=== PATIENT | female | born 1950 | race Caucasian/White ===

== ENCOUNTER → 2023-04-25 12:15 | Outpatient (REF) | payer MEDICARE, OTHER, SELFPAY | LOC: HWRAD 12:15 | PROVIDERS: ATTENDING PHYSICIAN Internal Medicine | DX: R07.89 Other chest pain (principal) | CPT/HCPCS: 71046 ==

== ENCOUNTER → 2023-05-14 09:32 | Outpatient (REF) | payer MEDICARE, OTHER, SELFPAY | LOC: HWRAD 09:32 | PROVIDERS: ATTENDING PHYSICIAN Internal Medicine | DX: R10.9 Unspecified abdominal pain (principal); R10.84 Generalized abdominal pain; M54.6 Pain in thoracic spine; R07.81 Pleurodynia | CPT/HCPCS: 71100; 72072 ==

== ENCOUNTER → 2023-05-24 09:35 | Outpatient (REF) | payer MEDICARE, OTHER, SELFPAY | LOC: RAD 09:35 | PROVIDERS: ATTENDING PHYSICIAN Internal Medicine | DX: R10.9 Unspecified abdominal pain (principal); N20.0 Calculus of kidney | CPT/HCPCS: 74176 ==

== ENCOUNTER → 2023-12-04 15:04 | Outpatient (REF) | payer MEDICARE, OTHER, SELFPAY | LOC: RCS 15:04 | PROVIDERS: ATTENDING PHYSICIAN Internal Medicine | DX: I10 Essential (primary) hypertension (principal); E78.5 Hyperlipidemia, unspecified; E07.89 Other specified disorders of thyroid; R07.89 Other chest pain | CPT/HCPCS: 93017 ==

== ENCOUNTER → 2024-03-13 11:26 | Outpatient (REF) | payer MEDICARE, OTHER, SELFPAY | LOC: WDC 11:26 | PROVIDERS: ATTENDING PHYSICIAN Internal Medicine | DX: Z12.31 Encounter for screening mammogram for malignant neoplasm of breast (principal) | CPT/HCPCS: 77063; 77067 ==

== ENCOUNTER → 2024-06-13 09:18 | Outpatient (REF) | payer MEDICARE, OTHER, SELFPAY | LOC: RAD 09:18 | PROVIDERS: ATTENDING PHYSICIAN Internal Medicine Rheumatology; FAMILY PHYSICIAN Internal Medicine | DX: M81.0 Age-related osteoporosis without current pathological fracture (principal) | CPT/HCPCS: 77080; 77081 ==

== ENCOUNTER 2025-02-18 06:29 | Day surgery (SDC) | payer MEDICARE, OTHER, SELFPAY | END 2025-02-18 09:37 | disposition home or self-care (01) | LOC: GI 06:29 | PROVIDERS: ATTENDING PHYSICIAN Internal Medicine | DX: D12.3 Benign neoplasm of transverse colon (principal); Q43.8 Other specified congenital malformations of intestine; K62.1 Rectal polyp; K64.9 Unspecified hemorrhoids; Z80.0 Family history of malignant neoplasm of digestive organs | CPT/HCPCS: 45385; 45380; 88305 ==